=== PATIENT | female | born 1950 | race Caucasian/White ===

== ENCOUNTER 2017-09-15 09:04 | Day surgery (SDC) | payer MEDICARE ==
[~2017-09-15] VITALS: Ht 157.5 cm; Wt 77.6 kg
[~2017-09-15 09:04] MED LIST: ATIVAN0.5 MG PO; BENADRYL25 M1 PO; ESCITALOPRAM OX10 MG PO; LEVOTHYROXIN75 MC1 PO; ROPINIROLE3 MG PO; TRAZODONE HCL50 MG PO
[2017-09-15 12:51] VITALS: BP 167/85
== END 2017-09-15 13:05 | disposition home or self-care (01) ==
LOC: ENDO 09:04 → ORM 10:45 → ENDO 13:05
PROVIDERS: ATTEND Internal Medicine Gastroenterology
PROC: 0DBB8ZX Excision of Ileum, Via Natural or Artificial Opening Endoscopic, Diagnostic (ICD-10-PCS; principal; 2017-09-15)
PROC: 0DBL8ZX Excision of Transverse Colon, Via Natural or Artificial Opening Endoscopic, Diagnostic (ICD-10-PCS; 2017-09-15)
PROC: 0DBN8ZX Excision of Sigmoid Colon, Via Natural or Artificial Opening Endoscopic, Diagnostic (ICD-10-PCS; 2017-09-15)
PROC: 0DBP8ZX Excision of Rectum, Via Natural or Artificial Opening Endoscopic, Diagnostic (ICD-10-PCS; 2017-09-15)
PROC: 0DBF8ZX Excision of Right Large Intestine, Via Natural or Artificial Opening Endoscopic, Diagnostic (ICD-10-PCS; 2017-09-15)
PROC: 0DBG8ZX Excision of Left Large Intestine, Via Natural or Artificial Opening Endoscopic, Diagnostic (ICD-10-PCS; 2017-09-15)
DX: K59.00 Constipation, unspecified (principal); K64.4 Residual hemorrhoidal skin tags; K64.8 Other hemorrhoids; K62.89 Other specified diseases of anus and rectum; K50.10 Crohn's disease of large intestine without complications

== ENCOUNTER → 2018-08-24 | Outpatient (REF) | payer MEDICARE ==
[~2018-08-24] VITALS: Ht 157.5 cm; Wt 79.4 kg
[~2018-08-24] MED LIST changes: +PREDNISONE50 MG PO
[2018-08-24 11:33] VITALS: BP 117/81
== END | disposition home or self-care (01) ==
LOC: PO 09:49 → ORM 10:00
PROVIDERS: ATTEND Surgery
DX: Z01.818 Encounter for other preprocedural examination (principal); R19.5 Other fecal abnormalities; K51.90 Ulcerative colitis, unspecified, without complications; G25.81 Restless legs syndrome; F33.8 Other recurrent depressive disorders; F41.8 Other specified anxiety disorders; Z98.890 Other specified postprocedural states

== ENCOUNTER 2018-08-29 07:36 | Day surgery (SDC) | payer MEDICARE ==
[~2018-08-29 07:36] MED LIST changes: -PREDNISONE50 MG PO
[2018-08-29] MEDS ORDERED: PREDNISONE50 MG PO (09:50)
[2018-08-29 10:00] VITALS: BP 142/78
== END 2018-08-29 10:20 | disposition home or self-care (01) ==
LOC: ENDO 07:36 → ORM 10:30
PROVIDERS: ATTEND Surgery
PROC: 0DBM8ZX Excision of Descending Colon, Via Natural or Artificial Opening Endoscopic, Diagnostic (ICD-10-PCS; principal; 2018-08-29)
PROC: 0DBN8ZX Excision of Sigmoid Colon, Via Natural or Artificial Opening Endoscopic, Diagnostic (ICD-10-PCS; 2018-08-29)
PROC: 0DBP8ZX Excision of Rectum, Via Natural or Artificial Opening Endoscopic, Diagnostic (ICD-10-PCS; 2018-08-29)
DX: K50.111 Crohn's disease of large intestine with rectal bleeding (principal); K57.31 Diverticulosis of large intestine without perforation or abscess with bleeding